=== PATIENT | female | born 1950 | race Caucasian/White ===

== ENCOUNTER 2020-10-08 09:45 | Emergency (ER) | payer OTHER, MEDICARE ==
[2020-10-08] MEDS ORDERED: Boostrix 0.5 ML (Tdap) VIAL ONE (10:24)
[2020-10-08] MEDS ORDERED: Lidocaine 1% w/Epinephrine 1:100K 20 ML VIAL ONE (10:46)
[2020-10-08] MEDS ORDERED: Bacitracin 1 PK ONE (11:14)
== END 2020-10-08 11:26 | disposition home or self-care (01) ==
LOC: MADERS 09:45
DX: S01.81XA Laceration without foreign body of other part of head, initial encounter (principal); R47.81 Slurred speech; I10 Essential (primary) hypertension; J44.9 Chronic obstructive pulmonary disease, unspecified; F17.210 Nicotine dependence, cigarettes, uncomplicated; W01.198A Fall on same level from slipping, tripping and stumbling with subsequent striking against other object, initial encounter
CPT/HCPCS: 12011; 70450; 72125; 90471; 90715